=== PATIENT | female | born 1985 | race Hispanic/Latino ===

== ENCOUNTER 2022-05-01 20:49 | Emergency (ER) | payer BC, OTHER ==
[~2022-05-01] VITALS: Ht 162.6 cm; Wt 79.4 kg
[2022-05-01] MEDS ORDERED: TETANUS/DIPHTHERIA TOX ADULT 0.5 ML SYR IM ONE (21:45)
[2022-05-01] MEDS ORDERED: CEPHALEXIN500 MG PO (21:46)
[2022-05-01] MEDS ORDERED: TETANUS/DIPHTHERIA TOX ADULT 0.5 ML SYR ONE (21:59)
== END 2022-05-01 22:26 | disposition home or self-care (01) ==
LOC: FSED 21:02
DX: S61.210A Laceration without foreign body of right index finger without damage to nail, initial encounter (principal); W26.0XXA Contact with knife, initial encounter; Y93.G1 Activity, food preparation and clean up; Y92.89 Other specified places as the place of occurrence of the external cause; M06.9 Rheumatoid arthritis, unspecified
CPT/HCPCS: 90714; 99283